=== PATIENT | female | born 1975 | race Two or more races ===

== ENCOUNTER → 2023-01-22 | Outpatient (CLI) | payer OTHER, SELFPAY ==
[2023-01-22 11:44] LABS: Absolute Lymphocyte Count 2.36 X10^3/uL (0.83-4.51); Absolute Neutrophil Count 4.6 X10^3/uL (2.0-7.7); Basophil# 0.07 X10^3/uL; Basophil% 0.8 % (0-1); Eosinophil# 0.32 X10^3/uL; Eosinophils% 3.9 % (0-5); Hematocrit 40.1 % (37-47); Hemoglobin 12.8 g/dL (12.0-15.0); Lymphocyte # 2.36 X10^3/ul (0.83-4.51); Lymphocyte % 28.6 % (19-41); Mean Corp Hgb Conc 31.9 g/dL (32-36); Mean Corpuscular Hgb 29.3 pg (27.0-32.0); Mean Corpuscular Volume 91.8 fL (81-99); Mean Platelet Vol. 11.7 fl (6.2-12.0); Monocyte# 0.83 X10^3/uL; Monocyte% 10.1 % (0-10); NRBC Flagged by Analyzer 0 % (0-5); Neutrophil # 4.63 X10^3/uL (2.7-7.7); Neutrophil % 56.2 % (47-70); Platelet Count 241 K/mm3 (150-450); RBC Distribution Width CV 12.7 % (11.6-14.6); RBC Distribution Width SD 42.7 fl (35.1-43.9); Red Blood Count 4.37 M/mm3 (4.2-5.4); White Blood Count 8.2 K/mm3 (4.4-11.0)
[2023-01-22 11:52] LABS: ALB/GLOB Ratio 1.2 RATIO (0.9-2.4); AST(SGOT) 16 U/L (15-37); Alanine Aminotransfer ALT/SGPT 25 U/L (13-56); Alkaline Phosphatase 50 U/L (45-117); Anion Gap 5 (5-15); BUN 27 mg/dL (7-18); BUN/Creat Ratio 26.5 RATIO (10-20); Calcium,Total 8.9 mg/dL (8.5-10.1); Chloride 107 mmol/L (98-107); Creatinine, Serum 1.02 mg/dL (0.55-1.02); EST Glomerular Filtration Rate 62 mL/min (>60); Est Glom Filt Rate - Afr Amer 75 mL/min (>60); Ferritin 50 ng/mL (8-252); Globulin 3.3 g/dL (2.2-4.2); Glucose 100 mg/dL (74-106); Potassium 4.4 mmol/L (3.5-5.1); Protein, Total 7.3 g/dL (6.4-8.2); Sodium Level 138 mmol/L (136-145)
[2023-01-26 15:18] LABS: G6PD Quant Test 232 (127-427); Red Blood Cell Count Test/G6PD 4.39 x10E6/uL (3.77-5.28)
== END | disposition home or self-care (01) ==
LOC: LABSPEC 10:58
PROVIDERS: Referring Provider Nurse Practitioner Family; Visit Provider Nurse Practitioner Family
DX: B60.09 Other babesiosis (principal); R53.82 Chronic fatigue, unspecified
CPT/HCPCS: 80053; 82728; 82955; 85025

== ENCOUNTER → 2023-08-17 | Outpatient (CLI) | payer OTHER, SELFPAY ==
[2023-08-17 12:49] LABS: Absolute Lymphocyte Count 2.43 X10^3/uL (0.83-4.51); Absolute Neutrophil Count 5.8 X10^3/uL (2.0-7.7); Basophil# 0.07 X10^3/uL; Basophil% 0.7 % (0-1); Eosinophil# 0.31 X10^3/uL; Eosinophils% 3.2 % (0-5); Hematocrit 37.3 % (37-47); Hemoglobin 11.8 g/dL (12.0-15.0); Lymphocyte # 2.43 X10^3/ul (0.83-4.51); Lymphocyte % 25.2 % (19-41); Mean Corp Hgb Conc 31.6 g/dL (32-36); Mean Corpuscular Hgb 29.6 pg (27.0-32.0); Mean Corpuscular Volume 93.5 fL (81-99); Mean Platelet Vol. 12.5 fl (6.2-12.0); Monocyte# 1.03 X10^3/uL; Monocyte% 10.7 % (0-10); NRBC Flagged by Analyzer 0 % (0-5); Neutrophil # 5.78 X10^3/uL (2.7-7.7); Neutrophil % 59.9 % (47-70); Platelet Count 247 K/mm3 (150-450); RBC Distribution Width SD 44.9 fl (35.1-43.9); Red Blood Count 3.99 M/mm3 (4.2-5.4); White Blood Count 9.7 K/mm3 (4.4-11.0)
[2023-08-17 13:03] LABS: Progesterone Level 0.26 ng/mL (See Comment)
[2023-08-17 13:45] LABS: ALB/GLOB Ratio 1.3 RATIO (0.9-2.4); AST(SGOT) 15 U/L (15-37); Alanine Aminotransfer ALT/SGPT 25 U/L (13-56); Albumin, Serum 3.9 g/dL (3.2-5.0); Alkaline Phosphatase 46 U/L (45-117); Anion Gap 7 (5-15); BUN 16 mg/dL (7-18); BUN/Creat Ratio 15.7 RATIO (10-20); Calcium,Total 8.6 mg/dL (8.5-10.1); Chloride 108 mmol/L (98-107); Creatinine, Serum 1.02 mg/dL (0.55-1.02); EST Glomerular Filtration Rate 62 mL/min (>60); Est Glom Filt Rate - Afr Amer 75 mL/min (>60); Estradiol 80.2 pg/mL; Free T3 2.6 pg/mL (2.18-3.98); Globulin 2.9 g/dL (2.2-4.2); Glucose 78 mg/dL (74-106); Potassium 4.4 mmol/L (3.5-5.1); Protein, Total 6.8 g/dL (6.4-8.2); Sodium Level 143 mmol/L (136-145); T4 Free Direct 0.93 ng/dL (0.76-1.46); Thyroid Stim Hormone (TSH) 2.61 uIU/mL (0.358-3.74)
[2023-08-19 15:08] LABS: DHEA Sulfate 73.8 ug/dL (41.2-243.7)
== END | disposition home or self-care (01) ==
LOC: LABSPEC 12:30
PROVIDERS: Referring Provider Nurse Practitioner Family; Visit Provider Nurse Practitioner Family
DX: U09.9 Post COVID-19 condition, unspecified (principal); R53.82 Chronic fatigue, unspecified; R42 Dizziness and giddiness; G89.29 Other chronic pain; H93.13 Tinnitus, bilateral; H93.233 Hyperacusis, bilateral; K59.00 Constipation, unspecified; R51.9 Headache, unspecified; G43.809 Other migraine, not intractable, without status migrainosus; H53.2 Diplopia; R53.1 Weakness; R29.6 Repeated falls; M79.7 Fibromyalgia; N80.9 Endometriosis, unspecified; R20.2 Paresthesia of skin; R45.4 Irritability and anger; G47.00 Insomnia, unspecified; F32.A Depression, unspecified; F41.9 Anxiety disorder, unspecified; Z11.8 Encounter for screening for other infectious and parasitic diseases
CPT/HCPCS: 80053; 82627; 82670; 84144; 84403; 84439; 84443; 84481; 85025; 82626

== ENCOUNTER → 2024-02-21 | Outpatient (CLI) | payer OTHER, SELFPAY ==
[2024-02-22 14:41] LABS: Absolute Lymphocyte Count 2.44 X10^3/uL (0.83-4.51); Absolute Neutrophil Count 6.3 X10^3/uL (2.0-7.7); Basophil# 0.07 X10^3/uL; Basophil% 0.7 % (0-1); Eosinophil# 0.12 X10^3/uL; Eosinophils% 1.2 % (0-5); Hematocrit 41.7 % (37-47); Hemoglobin 13.2 g/dL (12.0-15.0); Lymphocyte # 2.44 X10^3/ul (0.83-4.51); Mean Corp Hgb Conc 31.7 g/dL (32-36); Mean Corpuscular Hgb 28.8 pg (27.0-32.0); Mean Platelet Vol. 12.6 fl (6.2-12.0); Monocyte# 0.79 X10^3/uL; Monocyte% 8.1 % (0-10); NRBC Flagged by Analyzer 0 % (0-5); Neutrophil # 6.31 X10^3/uL (2.7-7.7); Neutrophil % 64.6 % (47-70); POSITIVE COUNT YES; RBC Distribution Width CV 12.6 % (11.6-14.6); RBC Distribution Width SD 41.9 fl (35.1-43.9); Red Blood Count 4.58 M/mm3 (4.2-5.4); White Blood Count 9.8 K/mm3 (4.4-11.0)
[2024-02-22 15:26] LABS: Differential Indicated SCAN CRITERIA MET
[2024-02-22 15:27] LABS: Differential Comment SCANNED
[2024-02-22 15:28] LABS: Platelet Estimate ADEQUATE (ADEQ)
[2024-02-22 15:34] LABS: ALB/GLOB Ratio 1.4 RATIO (0.9-2.4); AST(SGOT) 15 U/L (15-37); Alanine Aminotransfer ALT/SGPT 25 U/L (13-56); Albumin, Serum 4.7 g/dL (3.2-5.0); Alkaline Phosphatase 40 U/L (45-117); Anion Gap 7 (5-15); BUN 15 mg/dL (7-18); BUN/Creat Ratio 13.6 RATIO (10-20); Calcium,Total 9.9 mg/dL (8.5-10.1); Chloride 105 mmol/L (98-107); EST Glomerular Filtration Rate 57 mL/min (>60); Est Glom Filt Rate - Afr Amer 69 mL/min (>60); Ferritin 42 ng/mL (8-252); Free T3 2.7 pg/mL (2.18-3.98); Globulin 3.3 g/dL (2.2-4.2); Glucose 98 mg/dL (74-106); Iron 47 ug/dL (50-170); Potassium 4.1 mmol/L (3.5-5.1); Sodium Level 137 mmol/L (136-145); T4 Free Direct 1.02 ng/dL (0.76-1.46)
[2024-02-22 16:34] LABS: Vitamin B12 873 pg/mL (211-911); Vitamin D,25 Hydroxy 44.1 ng/mL
[2024-02-24 14:10] LABS: Thyroglobulin Antibody < 1.0 IU/mL (0.0-0.9); Thyroid Peroxidase AB < 9 IU/mL (0-34)
== END | disposition home or self-care (01) ==
LOC: LABSPEC 02-22 13:14
PROVIDERS: Referring Provider Nurse Practitioner Family; Visit Provider Nurse Practitioner Family
DX: R53.82 Chronic fatigue, unspecified (principal); G89.29 Other chronic pain; R51.9 Headache, unspecified; R53.1 Weakness; R06.00 Dyspnea, unspecified; L65.9 Nonscarring hair loss, unspecified
CPT/HCPCS: 80053; 82306; 82607; 82728; 82746; 83540; 84439; 84443; 84481; 85025; 86376; 86800

== ENCOUNTER → 2024-06-16 | Outpatient (CLI) | payer OTHER, SELFPAY ==
[2024-06-16 12:06] LABS: Absolute Lymphocyte Count 2.74 X10^3/uL (0.83-4.51); Absolute Neutrophil Count 6.6 X10^3/uL (2.0-7.7); Basophil# 0.08 X10^3/uL; Basophil% 0.7 % (0-1); Eosinophil# 0.34 X10^3/uL; Eosinophils% 3.2 % (0-5); Hematocrit 39.2 % (37-47); Hemoglobin 12.4 g/dL (12.0-15.0); Lymphocyte # 2.74 X10^3/ul (0.83-4.51); Lymphocyte % 25.5 % (19-41); Mean Corp Hgb Conc 31.6 g/dL (32-36); Mean Corpuscular Hgb 29.3 pg (27.0-32.0); Mean Corpuscular Volume 92.7 fL (81-99); Mean Platelet Vol. 11.8 fl (6.2-12.0); Monocyte# 0.94 X10^3/uL; Monocyte% 8.7 % (0-10); NRBC Flagged by Analyzer 0 % (0-5); Neutrophil % 61.4 % (47-70); Platelet Count 254 K/mm3 (150-450); Red Blood Count 4.23 M/mm3 (4.2-5.4); White Blood Count 10.8 K/mm3 (4.4-11.0)
[2024-06-16 12:53] LABS: ALB/GLOB Ratio 1.4 RATIO (0.9-2.4); AST(SGOT) 13 U/L (15-37); Alanine Aminotransfer ALT/SGPT 28 U/L (13-56); Albumin, Serum 4.6 g/dL (3.2-5.0); Alkaline Phosphatase 44 U/L (45-117); Anion Gap 7 (5-15); BUN 18 mg/dL (7-18); BUN/Creat Ratio 17.3 RATIO (10-20); Calcium,Total 10.1 mg/dL (8.5-10.1); Chloride 103 mmol/L (98-107); Creatinine, Serum 1.04 mg/dL (0.55-1.02); EST Glomerular Filtration Rate 61 mL/min (>60); Est Glom Filt Rate - Afr Amer 73 mL/min (>60); Estradiol 348.5 pg/mL; Globulin 3.2 g/dL (2.2-4.2); Glucose 100 mg/dL (74-106); Potassium 4.2 mmol/L (3.5-5.1); Protein, Total 7.8 g/dL (6.4-8.2); Sodium Level 136 mmol/L (136-145)
[2024-06-20 22:06] LABS: Testosterone Free 0.3 pg/mL (0.0-4.2)
== END | disposition home or self-care (01) ==
PROVIDERS: Referring Provider Nurse Practitioner Family; Visit Provider Nurse Practitioner Family
DX: U09.9 Post COVID-19 condition, unspecified (principal); R53.82 Chronic fatigue, unspecified; G89.29 Other chronic pain; R42 Dizziness and giddiness; H93.13 Tinnitus, bilateral; H93.233 Hyperacusis, bilateral; K59.00 Constipation, unspecified; G43.809 Other migraine, not intractable, without status migrainosus; H53.2 Diplopia; R53.1 Weakness; R29.6 Repeated falls; M79.7 Fibromyalgia; N80.9 Endometriosis, unspecified; R20.2 Paresthesia of skin; R45.4 Irritability and anger; G47.00 Insomnia, unspecified; F32.A Depression, unspecified; F41.9 Anxiety disorder, unspecified; B60.00 Babesiosis, unspecified
CPT/HCPCS: 80053; 82627; 82670; 84144; 84402; 85025; 82626